=== PATIENT | male | born 1975 | race African-American/Black ===

== ENCOUNTER 2017-05-02 17:43 | Emergency (ER) | payer OTHER ==
[~2017-05-02] VITALS: Ht 172.7 cm; Wt 77.6 kg
[2017-05-02] MEDS ORDERED: TRAZ-136 PO (17:53)
[2017-05-02 20:35] LABS: BASO % 0.6 % (0.0-1.0); EOS # 0.1 10^3/uL (0.0-0.50); EOS % 1.4 % (0.0-3.0); IMMATURE GRANULOCYTE % 0.2 % (0-0); LYMPH # 2.3 10^3/uL (1.5-4.5); LYMPH % 47.7 % (24.0-44.0); MEAN CORPUSCULAR HEMOGLOBIN 26.7 pg (27.0-33.0); MEAN CORPUSCULAR HGB CONC 33.6 g/dl (32.0-36.5); MEAN CORPUSCULAR VOLUME 79.6 fl (80.0-96.0); MONO # 0.5 10^3/uL (0.0-0.8); MONO % 9.9 % (0.0-5.0); NEUTROPHILS % 40.2 % (36.0-66.0); PLATELET COUNT, AUTOMATED 214 10^3/uL (150-450); WHITE BLOOD COUNT 4.9 10^3/uL (4.0-10.0)
[2017-05-02] MEDS ORDERED: NS 1,000 ML IV ONE (20:45)
[2017-05-02] MEDS ORDERED: MECLIZINE 25 MG TABLET PO ONE (20:45)
[2017-05-02 21:02] LABS: ANION GAP 7 MEQ/L (8-16); BLOOD UREA NITROGEN 17 MG/DL (7-18); CALCIUM LEVEL 8.6 MG/DL (8.5-10.1); CARBON DIOXIDE LEVEL 28 MEQ/L (21-32); CHLORIDE LEVEL 105 MEQ/L (98-107); CREATININE FOR GFR 1.11 MG/DL (0.70-1.30); GLOMERULAR FILTRATION RATE > 60.0 (>60); GLUCOSE, FASTING 99 MG/DL (70-105); SODIUM LEVEL 140 MEQ/L (136-145)
[2017-05-03] MEDS ORDERED: MECL-68 PO (00:34)
[2017-05-03 00:51] VITALS: BP 136/88
--- NOTE | 2017-05-03 06:57 | ECGEPIP ---
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
--- NOTE | 2017-05-03 06:59 | ECGEPIP ---
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
== END 2017-05-03 00:48 | disposition home or self-care (01) ==
LOC: M ED 17:43
DX: R55 Syncope and collapse (principal); R51 Headache; R94.31 Abnormal electrocardiogram [ECG] [EKG]; M54.6 Pain in thoracic spine; R26.89 Other abnormalities of gait and mobility; E86.0 Dehydration; R42 Dizziness and giddiness; R00.1 Bradycardia, unspecified; Z79.899 Other long term (current) drug therapy; Z88.6 Allergy status to analgesic agent

== ENCOUNTER 2018-02-09 12:42 | Emergency (ER) | payer OTHER ==
[2018-02-09] MEDS: NITROGLYCERIN 0.4 MG SUBL TABLET SL ×2 (12:24→12:31)
[2018-02-09 12:38] LABS: BASO % 0.5 % (0.0-1.0); EOS % 0.5 % (0.0-3.0); HEMATOCRIT 45.1 % (42.0-52.0); HEMOGLOBIN 15.2 g/dl (13.5-17.5); IMMATURE GRANULOCYTE % 0.3 % (0-3.0); LYMPH # 1.2 10^3/uL (1.5-4.5); MEAN CORPUSCULAR HEMOGLOBIN 27.4 pg (27.0-33.0); MEAN CORPUSCULAR HGB CONC 33.7 g/dl (32.0-36.5); MEAN CORPUSCULAR VOLUME 81.3 fl (80.0-96.0); MONO # 0.3 10^3/uL (0.0-0.8); MONO % 8.4 % (0.0-5.0); NEUTROPHILS # 2.2 10^3/uL (1.8-7.7); NEUTROPHILS % 58.3 % (36.0-66.0); PLATELET COUNT, AUTOMATED 217 10^3/uL (150-450); RED BLOOD COUNT 5.55 10^6/uL (4.30-6.10); RED CELL DISTRIBUTION WIDTH 14.7 % (11.5-14.5); WHITE BLOOD COUNT 3.7 10^3/uL (4.0-10.0)
[~2018-02-09 12:42] MED LIST: ACETAMINOPHEN TAB 650MG DOSE (2X325MG) As Ordered
[2018-02-09] MEDS ORDERED: MORPHINE 2 MG/ML 1ML SYRINGE (J2270) IV (12:45)
[2018-02-09 12:49] LABS: PROTHROMBIN TIME 12.2 SECONDS (12.1-14.4)
[2018-02-09 12:50] LABS: PARTIAL THROMBOPLASTIN TIME 30.9 SECONDS (25.4-37.6)
[2018-02-09 13:01] LABS: ALBUMIN 3.6 GM/DL (3.2-5.2); ALBUMIN/GLOBULIN RATIO 1.06 (1.00-1.93); ALKALINE PHOSPHATASE 67 U/L (45-117); ALT/SGPT 37 U/L (12-78); ANION GAP 9 MEQ/L (8-16); AST/SGOT 29 U/L (7-37); BILIRUBIN,DIRECT 0.1 MG/DL (0.0-0.2); BILIRUBIN,TOTAL 0.4 MG/DL (0.2-1.0); BLOOD UREA NITROGEN 17 MG/DL (7-18); CALCIUM LEVEL 8.5 MG/DL (8.5-10.1); CARBON DIOXIDE LEVEL 24 MEQ/L (21-32); CHLORIDE LEVEL 107 MEQ/L (98-107); CPK CREATINE PHOSPHOKINASE 221 U/L (39-308); CREATININE FOR GFR 1.03 MG/DL (0.70-1.30); GLOMERULAR FILTRATION RATE > 60.0 (>60); GLUCOSE, FASTING 98 MG/DL (70-100); MB/CK RELATIVE INDEX 0.68 (< OR =4); POTASSIUM SERUM 3.9 MEQ/L (3.5-5.1); SODIUM LEVEL 140 MEQ/L (136-145); TROPONIN I < 0.02 NG/ML (< 0.10)
[2018-02-09] MEDS ORDERED: ISOVUE-370 76% 100ML VIAL (Q9967) As Ordered (13:54)
[2018-02-09] MEDS: NS 1,000 ML IV (14:00)
[2018-02-09] MEDS: ACETAMINOPHEN TAB 650MG DOSE (2X325MG) PO (14:30)
[2018-02-09 17:30] LABS: CPK CREATINE PHOSPHOKINASE 250 U/L (39-308); MB/CK RELATIVE INDEX 0.64 (< OR =4); TROPONIN I < 0.02 NG/ML (< 0.10)
[2018-02-09] MEDS: COLCHICINE 0.6 MG TAB PO (18:30)
== END 2018-02-09 18:42 | disposition home or self-care (01) ==
LOC: M ED 12:42
DX: R07.89 Other chest pain (principal); R94.31 Abnormal electrocardiogram [ECG] [EKG]; E11.9 Type 2 diabetes mellitus without complications; Z88.6 Allergy status to analgesic agent; Z79.899 Other long term (current) drug therapy
CPT/HCPCS: Q9967

== ENCOUNTER → 2018-02-27 | Outpatient (CLI) | payer OTHER ==
[~2018-02-27] MED LIST changes: -ACETAMINOPHEN TAB 650MG DOSE (2X325MG) As Ordered; +METHACHOLINE KIT (J7674) INH
== END ==
LOC: M CARPUL 08:25
DX: R06.00 Dyspnea, unspecified (principal)

== ENCOUNTER → 2018-03-13 | Outpatient (CLI) | payer OTHER | LOC: M RAD 14:54 | DX: J45.990 Exercise induced bronchospasm (principal) | CPT/HCPCS: 71250 ==